=== PATIENT | male | born 1990 | race Caucasian/White ===

== ENCOUNTER 2023-10-05 01:58 | Inpatient (IN) | payer MEDICAID ==
[~2023-10-05] VITALS: Ht 175.3 cm; Wt 76.2 kg
[2023-10-05] MEDS ORDERED: ZOLPIDEM TARTRATE 10 MG TABLET PO PRN (02:30)
[2023-10-05 03:45] VITALS: BP 102/74; PULSE 86; RESP 18; TEMP 97.3; O2SAT 98
[2023-10-05] MEDS ORDERED: CloNIDine HCL 0.1 MG TABLET PO PRN (06:45)
[2023-10-05] MEDS ORDERED: DOCUSATE SODIUM 100 MG CAPSULE PO PRN (06:45)
[2023-10-05] MEDS ORDERED: MAG HYDROX/ALUMINUM HYD/SIMETH ES 30 ML SUSPENSION UDCUP PO PRN (06:45)
[2023-10-05] MEDS ORDERED: PETROLATUM,WHITE 28 GM JELLY TP PRN (06:45)
[2023-10-05] MEDS ORDERED: MAGNESIUM HYDROXIDE SUSPENSION 30 ML UDCUP PO PRN (06:45)
[2023-10-05] MEDS ORDERED: NICOTINE 14 MG/24 HOUR PATCH TD PRN (06:45)
[2023-10-05] MEDS ORDERED: ALBUTEROL SULFATE HFA 90 MCG/PUFF 8 GM INHALER IH PRN (06:45)
[2023-10-05] MEDS ORDERED: ACETAMINOPHEN 325 MG TABLET PO PRN (06:45)
[2023-10-05] MEDS ORDERED: ONDANSETRON HCL 4 MG TABLET PO PRN (06:45)
[2023-10-05] MEDS ORDERED: GuaiFENesin/D-METHORPHAN [SUGAR-FREE] 200-20MG/10 ML SYRUP UDCUP PO PRN (06:45)
[2023-10-05] MEDS ORDERED: IBUPROFEN 400 MG TABLET PO PRN (06:45)
[2023-10-05] MEDS ORDERED: LOPERAMIDE HCL 2 MG CAPSULE PO PRN (06:45)
[2023-10-05 10:00] VITALS: BP 105/74; PULSE 88; RESP 18; TEMP 98.3; O2SAT 98
[2023-10-05] MEDS ORDERED: HALO20TA7 PO (14:48)
[2023-10-05] MEDS ORDERED: DIVA-54 PO (14:48)
[2023-10-05] MEDS ORDERED: LEVO25TA9 PO (14:59)
[2023-10-05] MEDS ORDERED: METF-1211 PO (14:59)
[2023-10-05] MEDS: DIVALPROEX SODIUM 500 MG DR TABLET PO SCH ×2 (16:37→20:38)
[2023-10-05] MEDS: LORazepam 2 MG TABLET PO PRN (17:20)
[2023-10-05] MEDS ORDERED: HALOPERIDOL 10 MG TABLET PO SCH (21:00)
[2023-10-05 21:50] VITALS: BP 106/68; PULSE 82; RESP 16; TEMP 97.8; O2SAT 98
[2023-10-06 08:03] VITALS: BP 110/74; PULSE 86; RESP 16; TEMP 98; O2SAT 95
[2023-10-06] MEDS: DIVALPROEX SODIUM 500 MG DR TABLET PO SCH ×2 (09:54→21:00)
[2023-10-06] MEDS: LORazepam 2 MG TABLET PO PRN (13:23)
[2023-10-06] MEDS: HALOPERIDOL 5 MG TABLET PO PRN (13:23)
[2023-10-06] MEDS: HALOPERIDOL 10 MG TABLET PO SCH (17:09)
[2023-10-07] MEDS: HALOPERIDOL 10 MG TABLET PO SCH ×2 (08:30→16:56)
[2023-10-07] MEDS: DIVALPROEX SODIUM 500 MG DR TABLET PO SCH ×2 (08:30→20:36)
[2023-10-07] MEDS: HALOPERIDOL 5 MG TABLET PO PRN (08:51)
[2023-10-07] MEDS: LORazepam 2 MG TABLET PO PRN ×2 (08:51→16:56)
[2023-10-07 20:02] VITALS: RESP 18
[2023-10-08 08:10] VITALS: RESP 17
[2023-10-08] MEDS: HALOPERIDOL 5 MG TABLET PO PRN (08:14)
[2023-10-08] MEDS: LORazepam 2 MG TABLET PO PRN (08:14)
[2023-10-08] MEDS: DIVALPROEX SODIUM 500 MG DR TABLET PO SCH ×2 (08:14→20:24)
[2023-10-08] MEDS: HALOPERIDOL 10 MG TABLET PO SCH ×2 (08:14→16:44)
[2023-10-08 23:36] VITALS: RESP 18
[2023-10-09] MEDS: DIVALPROEX SODIUM 500 MG DR TABLET PO SCH ×2 (08:05→20:29)
[2023-10-09] MEDS: HALOPERIDOL 10 MG TABLET PO SCH ×2 (08:05→16:12)
[2023-10-09 08:30] VITALS: RESP 18
[2023-10-09 20:11] VITALS: RESP 18
[2023-10-10 08:12] VITALS: BP 117/72; PULSE 70; RESP 17; TEMP 98; O2SAT 99
[2023-10-10] MEDS: DIVALPROEX SODIUM 500 MG DR TABLET PO SCH ×2 (09:25→21:00)
[2023-10-10] MEDS: HALOPERIDOL 10 MG TABLET PO SCH ×2 (09:25→16:28)
[2023-10-10 20:03] VITALS: RESP 18
[2023-10-11 08:20] VITALS: BP 135/79; PULSE 91; RESP 17; TEMP 97.6; O2SAT 98
[2023-10-11 08:38] LABS: APPEARANCE,URINE CLEAR (CLEAR); BILIRUBIN,URINE NEGATIVE (NEGATIVE); COLOR,URINE LIGHT YELLOW (YELLOW); GLUCOSE, URINE (UA) NEGATIVE (NEGATIVE); KETONES,URINE NEGATIVE (NEGATIVE); LEUKOCYTE ESTERASE ,URINE NEGATIVE (NEGATIVE); NITRATE,URINE NEGATIVE (NEGATIVE); OCCULT BLOOD,URINE NEGATIVE (NEGATIVE); PH,URINE 6.5 (5.0-8.0); PH,URINE DRUG SCREEN 6.5 (5.0-8.0); PROTEIN,URINE NEGATIVE (NEGATIVE); SPECIFIC GRAVITIY, URINE 1.009 (1.003-1.030); UROBILINOGEN,URINE <=1.0 mg/dL (<=1.0)
[2023-10-11] MEDS: HALOPERIDOL 10 MG TABLET PO SCH (08:40)
[2023-10-11] MEDS: DIVALPROEX SODIUM 500 MG DR TABLET PO SCH (08:40)
[2023-10-11 08:44] LABS: AMPHET/METH SCREEN,URINE NEGATIVE (NEGATIVE); BARBITURATE SCREEN, URINE NEGATIVE (NEGATIVE); BENZODIAZEPINES SCREEN,URINE NEGATIVE (NEGATIVE); CANNABINOID SCREEN,URINE NEGATIVE (NEGATIVE); COCAINE SCREEN,URINE NEGATIVE (NEGATIVE); METHADONE SCREEN, URINE NEGATIVE (NEGATIVE); OPIATE SCREEN,URINE NEGATIVE (NEGATIVE); PHENCYCLIDINE SCREEN,URINE NEGATIVE (NEGATIVE)
[2023-10-11 08:47] LABS: ALCOHOL, URINE DRUG SCREEN NEGATIVE (NEGATIVE)
[2023-10-11] MEDS ORDERED: DIVA-112 PO (09:48)
[2023-10-11] MEDS ORDERED: HALO10TA21 PO (09:48)
== END 2023-10-11 10:20 | disposition home or self-care (01) | DRG 750 ==
LOC: B3A 03:19
PROVIDERS: ADMIT Psychiatry & Neurology Psychiatry; ATTEND Psychiatry & Neurology Psychiatry
PROC: GZHZZZZ Group Psychotherapy (ICD-10-PCS; principal; 2023-10-05)
DX: F25.0 Schizoaffective disorder, bipolar type (principal); E11.9 Type 2 diabetes mellitus without complications; E03.9 Hypothyroidism, unspecified; F60.2 Antisocial personality disorder; F10.10 Alcohol abuse, uncomplicated; F19.10 Other psychoactive substance abuse, uncomplicated; G47.00 Insomnia, unspecified; Z59.02 Unsheltered homelessness; Z79.899 Other long term (current) drug therapy; Z79.84 Long term (current) use of oral hypoglycemic drugs
CPT/HCPCS: 80307; 81003